=== PATIENT | female | born 1985 | race Caucasian/White ===

== ENCOUNTER 2018-02-19 10:36 | Inpatient (IN) | payer OTHER ==
[2018-02-19] MEDS: Lactated Ringer's 1,000 ML IV SCH ×2 (11:25→12:14)
[2018-02-19 11:29] VITALS: BMI 38.7
[2018-02-19] MEDS ORDERED: Ondansetron PF 4 MG/2 ML Vial IVP PRN ×3 (11:53→16:55)
[2018-02-19] MEDS ORDERED: Promethazine HCl 25 MG/ML VIAL IM PRN ×2 (11:53→16:55)
[2018-02-19] MEDS ORDERED: CEFAZOLIN 2 GM/50 ML BAG IVPB SCH (12:00)
[2018-02-19] MEDS ORDERED: Bicitra 30 ML UDCUP PO SCH (12:00)
[2018-02-19] MEDS ORDERED: CEFAZOLIN 2 GM/50 ML BAG ONE (12:03)
[2018-02-19] MEDS ORDERED: Bicitra 30 ML UDCUP ONE (12:04)
[2018-02-19 12:31] LABS: Hemoglobin 12.8 g/dL (12.0-16.0); Mean Corpuscular HGB CONC 33.8 g/dL (32.0-36.0); Mean Corpuscular Hemoglobin 30.7 pg (27.0-31.0); Mean Platelet Volume 7.5 fL (7.4-10.4); Platelet Count 226 thou/uL (130-400); Red Blood Cell (RBC) Count 4.17 mill/uL (4.20-5.40); White Blood Cell (WBC) Count 8.9 thou/uL (4.8-10.8)
[2018-02-19] MEDS ORDERED: Morphine PF 1 MG/ML SYR ONE (12:58)
[2018-02-19] MEDS ORDERED: Ondansetron PF 4 MG/2 ML Vial ONE ×2 (12:59→16:47)
[2018-02-19] MEDS ORDERED: Oxytocin 10 UNITS/ML VIAL ONE ×2 (12:59→13:31)
[2018-02-19 13:12] LABS: Syphilis Antibody Nonreactive (Nonreactive); Syphilis Antibody Index 0.06 S/CO (<1.00 Non-Reactive)
[2018-02-19 13:13] LABS: HBSAg Index 0.23 S/CO (0-0.99); Hep B Surf Ag Non-Reactive S/CO (NonReactive)
[2018-02-19] MEDS ORDERED: Misoprostol 200 MCG TAB PR PRN (15:16)
[2018-02-19] MEDS ORDERED: diphenhydrAMINE 25 MG CAP PO PRN (15:16)
[2018-02-19] MEDS ORDERED: HYDROcodone/Acetaminophen 5/325 mg Tablet PO PRN ×2 (15:16)
[2018-02-19] MEDS ORDERED: Bisacodyl 10 MG SUPP PR PRN (15:16)
[2018-02-19] MEDS ORDERED: Simethicone Chewable 80 MG TAB PO PRN (15:16)
[2018-02-19] MEDS ORDERED: Methylergonovine 0.2 MG/ML VIAL IM PRN (15:16)
[2018-02-19] MEDS ORDERED: Meperidine HCl/PF 25 MG/ML VIAL IM PRN (15:16)
[2018-02-19] MEDS ORDERED: Lanolin Ointment 7 GM TUBE TOP PRN (15:16)
[2018-02-19] MEDS ORDERED: NS / Oxytocin 40 units/1000ml 1,000 ML IV SCH (15:16)
[2018-02-19] MEDS ORDERED: diphenhydrAMINE 50 MG/ML VIAL ONE (15:22)
[2018-02-19] MEDS ORDERED: diphenhydrAMINE 50 MG/ML VIAL IVP SCH (16:00)
[2018-02-19] MEDS ORDERED: Naloxone HCl 0.4 mg/ml Vial IV PRN (16:55)
[2018-02-19] MEDS ORDERED: diphenhydrAMINE 50 MG/ML VIAL IVP PRN (16:55)
[2018-02-19] MEDS ORDERED: Eucerin (Mineral Oil/Petrolatum,White) 30 gm Jar TOP PRN (16:55)
[2018-02-19] MEDS ORDERED: Promethazine HCl 25 MG SUPP PR PRN (16:55)
[2018-02-19] MEDS ORDERED: HYDROmorphone 2 MG/ML VIAL SLOW IVP PRN (16:55)
[2018-02-19] MEDS ORDERED: Naloxone HCl 0.4 mg/ml Vial IVP PRN ×2 (16:55)
[2018-02-19] MEDS ORDERED: Ondansetron HCl/PF 4 MG/2 ML Vial IVP PRN (16:55)
[2018-02-19] MEDS ORDERED: L&D-Morphine 4 MG/ML VIAL SLOW IVP PRN (16:55)
[2018-02-19] MEDS ORDERED: Meperidine HCl/PF 25 MG/ML VIAL SLOW IVP PRN (16:55)
[2018-02-19] MEDS ORDERED: Ketorolac Tromethamine 30 MG/ML VIAL IVP SCH (17:00)
[2018-02-19] MEDS ORDERED: Communication Order-Pharmacy FS SCH (17:00)
[2018-02-19] MEDS ORDERED: Meperidine HCl/PF 25 MG/ML VIAL ONE (17:07)
[2018-02-19] MEDS: Ketorolac Tromethamine 30 MG/ML VIAL IVP PRN (21:21)
[2018-02-20] MEDS: Docusate Calcium (SURFAK) 240 MG CAP PO SCH ×3 (01:18→21:48)
[2018-02-20] MEDS: Ibuprofen 800 MG TAB PO SCH ×4 (01:19→21:48)
[2018-02-20] MEDS: Ferrous Sulfate 325 MG TAB PO SCH ×3 (01:19→21:25)
[2018-02-20] MEDS: Ketorolac Tromethamine 30 MG/ML VIAL IVP PRN (04:10)
[2018-02-20] MEDS ORDERED: Meperidine HCl/PF 25 MG/ML VIAL IM PRN (05:00)
[2018-02-20 06:22] LABS: Hemoglobin 11.3 g/dL (12.0-16.0); Mean Corpuscular HGB CONC 34.6 g/dL (32.0-36.0); Mean Corpuscular Hemoglobin 31.8 pg (27.0-31.0); Mean Corpuscular Volume 91.9 fL (78.0-98.0); Mean Platelet Volume 7.7 fL (7.4-10.4); Platelet Count 168 thou/uL (130-400); Red Blood Cell (RBC) Count 3.54 mill/uL (4.20-5.40); White Blood Cell (WBC) Count 9.6 thou/uL (4.8-10.8)
[2018-02-20] MEDS: Prenatal Vitamin 1 TAB PO SCH (08:22)
[2018-02-20] MEDS: HYDROcodone/Acetaminophen 5/325 mg Tablet PO PRN ×3 (08:22→19:57)
[2018-02-21] MEDS: HYDROcodone/Acetaminophen 5/325 mg Tablet PO PRN ×5 (00:28→21:11)
[2018-02-21] MEDS: Ibuprofen 800 MG TAB PO SCH ×3 (05:31→21:07)
[2018-02-21] MEDS: Docusate Calcium (SURFAK) 240 MG CAP PO SCH ×2 (10:10→21:07)
[2018-02-21] MEDS: Prenatal Vitamin 1 TAB PO SCH (10:11)
[2018-02-21] MEDS: Ferrous Sulfate 325 MG TAB PO SCH ×2 (10:11→21:07)
--- NOTE | 2018-02-21 11:18 | DN ---
DATE OF PROCEDURE: 02/19/2018 [employer] OPERATOR SURGEON: Mary Broderick MD, PGY-3. PROCEDURE PERFORMED: Repeat low transverse section. PREOPERATIVE DIAGNOSES: 1. Term intrauterine . 2. Previous section. POSTOPERATIVE DIAGNOSIS: 1. Term intrauterine . 2. Status-post repeat LTCS ANESTHESIA: Spinal. INDICATIONS FOR PROCEDURE: The patient is a 33-year-old G2, P1-0-0-1 female at 39 weeks' gestation, who presented for a repeat scheduled . PROCEDURE IN DETAIL: After risks, benefits, and alternatives were explained to the patient, she gave informed consent. Preoperative antibiotics included cefazolin 2 g IV. The patient was taken to the operating room and spinal anesthesia was initiated. She was placed in supine position with left tilt and prepped and draped in the usual sterile fashion. A Pfannenstiel incision was made with the scalpel and carried down to the level of the fascia, which was sharply nicked. The fascial cut was extended bilaterally with Darby scissors. The inferior and superior edges of the cut fascial edges were elevated with Hortensia clamps and the underlying rectus muscles were sharply and bluntly dissected free. The recti were divided digitally and retracted manually. The peritoneum was entered bluntly and retracted manually. Bladder blade was placed. A low transverse incision was made with the scalpel and the uterus was entered in the midline with a scalpel. Clear fluid was seen. The hysterotomy was extended manually. The infant was noted to be in vertex and easily delivered via fundal pressure. Mouth and nares were bulb suctioned. Cord clamped and cut, and grossly normal female was handed to awaiting nurse. Cord blood was obtained. Placenta was manually extracted and found to be intact with three-vessel cord. The endometrium curetted with a dry lap. The bladder blade was replaced and the uterus was closed with a running locking 0 Vicryl suture. Following this, hemostasis was noted. The abdomen was irrigated with saline and suctioned free of clots. Seprafilm was applied. The uterus was internalized and the hysterotomy was again noted to be hemostatic. The peritoneum was closed with running 3-0 Vicryl suture. The fascia was closed with a running nonlocking 0 PDS suture. The subcutaneous tissue was irrigated. There were no bleeders. The subcutaneous tissue was approximated with 3 interrupted 3-0 Vicryl sutures. Skin was approximated with xena and a pressure dressing was applied. All counts were correct. The patient tolerated the procedure well and was taken to the recovery room in stable condition. QUANTITATIVE BLOOD LOSS: 541 mL COMPLICATIONS: None. SPECIMEN: Cord blood was sent to lab for blood type. FINDINGS: Grossly normal female infant with Apgars of 8 and 8. Grossly normal placenta with three-vessel cord, discarded. DRAINS: Ashby to gravity draining clear urine. Job ID: [id number] [facility]
[2018-02-22] MEDS: HYDROcodone/Acetaminophen 5/325 mg Tablet PO PRN ×2 (00:57→09:10)
[2018-02-22] MEDS: Ibuprofen 800 MG TAB PO SCH (06:02)
[2018-02-22] MEDS: Prenatal Vitamin 1 TAB PO SCH (09:10)
[2018-02-22] MEDS: Docusate Calcium (SURFAK) 240 MG CAP PO SCH (09:10)
[2018-02-22] MEDS: Ferrous Sulfate 325 MG TAB PO SCH (09:11)
[2018-02-22 09:12] VITALS: BP 136/70; TEMP 97.9
== END 2018-02-22 14:20 | disposition home or self-care (01) | DRG 788 ==
LOC: L&D 10:36 → 3SW 18:22
PROVIDERS: ADMIT Family Medicine; ATTEND Family Medicine
PROC: 10D00Z1 Extraction of Products of Conception, Low, Open Approach (ICD-10-PCS; principal; 2018-02-19)
PROC: 10907ZC Drainage of Amniotic Fluid, Therapeutic from Products of Conception, Via Natural or Artificial Opening (ICD-10-PCS; 2018-02-19)
DX: O34.211 Maternal care for low transverse scar from previous cesarean delivery (principal); O75.82 Onset (spontaneous) of labor after 37 completed weeks of gestation but before 39 completed weeks gestation, with delivery by (planned) cesarean section; Z3A.39 39 weeks gestation of pregnancy; Z37.0 Single live birth
CPT/HCPCS: 36415; 51702; 85027; 86780; 86850; 86900; 86901; 87340; J1200; J1885; J2175; J2274; J2405; J2590